=== PATIENT | female | born 1945 | race Caucasian/White ===

== ENCOUNTER → 2016-05-14 | Outpatient (CLI) | payer OTHER ==
[~2016-05-14] MED LIST: ASPCH81X PO; CALC8.5C PO; CHOL100010 PO; ECHI1CAP PO; GLUC500T35 PO; MULT-506 PO; OMEG10007 PO; PHEN32.44 PO; [UNRECOGNIZED DRUG - CODE] PO
[2016-05-14 17:34] LABS: THYROID STIMULATING HORMONE < 0.005 uIu/ml (0.300-4.500)
[2016-05-16 14:54] LABS: MICROSOMAL AB 340 IU/ML (<9)
== END | disposition home or self-care (01) ==
LOC: C.LABBC 13:12
PROVIDERS: ATTEND Internal Medicine Geriatric Medicine
DX: E05.90 Thyrotoxicosis, unspecified without thyrotoxic crisis or storm (principal)

== ENCOUNTER → 2016-06-12 | Outpatient (CLI) | payer OTHER | END | disposition home or self-care (01) | LOC: C.LABBC 13:09 | PROVIDERS: ATTEND Internal Medicine Geriatric Medicine | DX: E05.90 Thyrotoxicosis, unspecified without thyrotoxic crisis or storm (principal) ==

== ENCOUNTER → 2016-07-03 | Outpatient (CLI) | payer OTHER | END | disposition home or self-care (01) | LOC: C.MAMM 10:13 | PROVIDERS: ATTEND Internal Medicine Endocrinology, Diabetes & Metabolism | DX: E55.9 Vitamin D deficiency, unspecified (principal); M85.851 Other specified disorders of bone density and structure, right thigh; M85.852 Other specified disorders of bone density and structure, left thigh ==

== ENCOUNTER → 2016-07-07 | Outpatient (CLI) | payer OTHER ==
[2016-07-07 16:40] LABS: HEMATOCRIT 39.7 % (37-47)
[2016-07-08 06:44] LABS: ESTIMATED AVERAGE GLUCOSE 100 mg/dl; HA1C FLAG Normal (Normal)
[2016-07-10 15:31] LABS: TSI 702 % baseline (<140)
== END | disposition home or self-care (01) ==
LOC: C.LAB1850 15:04
PROVIDERS: ATTEND Internal Medicine Endocrinology, Diabetes & Metabolism
DX: E05.90 Thyrotoxicosis, unspecified without thyrotoxic crisis or storm (principal); R73.9 Hyperglycemia, unspecified

== ENCOUNTER → 2016-07-28 | Outpatient (CLI) | payer OTHER ==
[2016-07-28 16:38] LABS: THYROID STIMULATING HORMONE 5.86 uIu/ml (0.300-4.500)
== END | disposition home or self-care (01) ==
LOC: C.LAB1850 15:02
PROVIDERS: ATTEND Internal Medicine Endocrinology, Diabetes & Metabolism
DX: E05.90 Thyrotoxicosis, unspecified without thyrotoxic crisis or storm (principal)

== ENCOUNTER → 2016-08-18 | Outpatient (CLI) | payer OTHER ==
[2016-08-18 16:24] LABS: THYROID STIMULATING HORMONE 2.76 uIu/ml (0.300-4.500)
== END | disposition home or self-care (01) ==
LOC: C.LAB1850 14:27
PROVIDERS: ATTEND Internal Medicine Endocrinology, Diabetes & Metabolism
DX: E05.90 Thyrotoxicosis, unspecified without thyrotoxic crisis or storm (principal)

== ENCOUNTER → 2016-11-17 | Outpatient (CLI) | payer OTHER ==
[2016-11-17 12:11] LABS: THYROID STIMULATING HORMONE 3.81 uIu/ml (0.300-4.500)
== END | disposition home or self-care (01) ==
LOC: C.LAB1850 10:24
PROVIDERS: ATTEND Internal Medicine Endocrinology, Diabetes & Metabolism
DX: E05.90 Thyrotoxicosis, unspecified without thyrotoxic crisis or storm (principal)

== ENCOUNTER → 2017-01-05 | Outpatient (CLI) | payer OTHER ==
[2017-01-05 12:52] LABS: THYROID STIMULATING HORMONE 3.45 uIu/ml (0.300-4.500)
== END | disposition home or self-care (01) ==
LOC: C.LAB1850 10:19
PROVIDERS: ATTEND Internal Medicine Endocrinology, Diabetes & Metabolism
DX: E05.90 Thyrotoxicosis, unspecified without thyrotoxic crisis or storm (principal)

== ENCOUNTER → 2017-01-06 | Outpatient (CLI) | payer OTHER ==
--- NOTE | 2017-01-06 15:24 | DIAGNOSTIC IMAGING REPORT ---
LEFT FOOT 2 VIEWS CLINICAL HISTORY: M19.90 [id number] Osteopenia left [id number]. Left foot pain. Fall. COMPARISON STUDY: None. FINDINGS: No fracture or dislocation. Small posterior calcaneal spur. The bones are osteopenic. The Lisfranc joint is intact. Mild osteoarthritis at the first MTP joint and interphalangeal joint of the first toe. Soft tissue and bony bunion. IMPRESSION: No acute fracture or dislocation within the left foot. Chronic changes as described above. Electronically signed by: Julian Patterson M.D. 01/06/2017 3:22 PM Dictated Date/Time: 01/06/2017 3:19 PM
== END | disposition home or self-care (01) ==
LOC: C.RAD1850 14:52
PROVIDERS: ATTEND Internal Medicine Endocrinology, Diabetes & Metabolism
DX: M19.90 Unspecified osteoarthritis, unspecified site (principal); M85.80 Other specified disorders of bone density and structure, unspecified site

== ENCOUNTER → 2017-01-27 | Outpatient (CLI) | payer OTHER ==
--- NOTE | 2017-01-27 17:35 | DIAGNOSTIC IMAGING REPORT ---
LEFT VENOUS DOPP LOWER EXT UNILAT CLINICAL HISTORY: I80.9 Superficial phlebitis left LE.[id number] pain. Edema. TECHNIQUE: Venous Doppler COMPARISON STUDY: 04/21/2016 FINDINGS: Normal study IMPRESSION: Normal study The above report was generated using voice recognition software. It may contain grammatical, syntax or spelling errors. Electronically signed by: Michi Durant M.D. 01/27/2017 5:34 PM Dictated Date/Time: 01/27/2017 5:33 PM
== END | disposition home or self-care (01) ==
LOC: C.ULTR 17:08
PROVIDERS: ATTEND Physician Assistant Medical
DX: I80.3 Phlebitis and thrombophlebitis of lower extremities, unspecified (principal); M79.605 Pain in left leg; R60.0 Localized edema

== ENCOUNTER → 2017-03-09 | Outpatient (CLI) | payer OTHER | END | disposition home or self-care (01) | LOC: C.LAB1850 15:13 | PROVIDERS: ATTEND Internal Medicine Endocrinology, Diabetes & Metabolism | DX: E05.90 Thyrotoxicosis, unspecified without thyrotoxic crisis or storm (principal) ==

== ENCOUNTER → 2017-04-30 | Outpatient (CLI) | payer OTHER ==
--- NOTE | 2017-04-30 14:34 | MAMMOGRAPHY REPORT ---
BILATERAL DIGITAL SCREENING MAMMOGRAM WITH CAD: 04/30/2017 CLINICAL HISTORY: Routine screening. TECHNIQUE: Current study was also evaluated with a Computer Aided Detection (CAD) system. Bilateral CC and MLO views are obtained. COMPARISON: Comparison is made to exams dated: 04/29/2016 mammogram, 04/24/2015 mammogram, 03/14/2014 mammogram, 02/15/2013 mammogram, 02/10/2012 mammogram, and 01/21/2011 mammogram - [facility]. BREAST COMPOSITION: There are scattered areas of fibroglandular density in both breasts. FINDINGS: No suspicious masses, calcifications, or areas of architectural distortion are noted in ei ther breast. There has been no significant interval change compared to prior exams. IMPRESSION: ACR BI-RADS CATEGORY 1: NEGATIVE There is no mammographic evidence of malignancy. A 1 year screening mammogram is recommended. The pa tient will receive written notification of the results. Approximately 10% of breast cancers are not detected with mammography. A negative mammographic report should not delay biopsy if a clinically suggestive mass is present. Jazmin Garza M.D. ah/:04/30/2017 12:11:04 [employer]: Faiza SARMIENTO(R)(M), [facility] letter sent: Normal 1/2 BI-RADS Code: ACR BI-RADS Category 1: Negative
== END | disposition home or self-care (01) ==
LOC: C.MAMM 10:37
PROVIDERS: ATTEND Obstetrics & Gynecology
DX: Z12.31 Encounter for screening mammogram for malignant neoplasm of breast (principal)

== ENCOUNTER → 2017-05-08 | Outpatient (CLI) | payer OTHER ==
[~2017-05-08] MED LIST changes: +APIX1TAB3 PO; +CHOLTAB9 PO; +ESTR0.5T3 PO; +NORE5TAB5 PO
[2017-05-08 11:24] LABS: BLOOD UREA NITROGEN 17 mg/dl (7-18); CALCIUM 8.6 mg/dl (8.5-10.1); CARBON DIOXIDE 28 mmol/L (21-32); GLUCOSE 97 mg/dl (70-99); POTASSIUM 3.9 mmol/L (3.5-5.1); SODIUM 139 mmol/L (136-145)
[2017-05-08 11:36] LABS: CHOLESTEROL 210 mg/dl (0-200); LDL CHOLESTEROL CALCULATED 104 mg/dl
== END | disposition home or self-care (01) ==
LOC: C.LAB1850 09:38
PROVIDERS: ATTEND Internal Medicine Endocrinology, Diabetes & Metabolism
DX: E05.90 Thyrotoxicosis, unspecified without thyrotoxic crisis or storm (principal); E55.9 Vitamin D deficiency, unspecified

== ENCOUNTER → 2017-07-07 | Outpatient (CLI) | payer OTHER ==
[~2017-07-07] MED LIST changes: -APIX1TAB3 PO; -CHOLTAB9 PO; -ESTR0.5T3 PO; -NORE5TAB5 PO
[2017-07-07 12:25] LABS: ALBUMIN 3.7 gm/dl (3.4-5.0); ALT/SGPT 21 U/L (12-78); AST/SGOT 14 U/L (15-37); BLOOD UREA NITROGEN 15 mg/dl (7-18); CALCIUM 8.5 mg/dl (8.5-10.1); CARBON DIOXIDE 26 mmol/L (21-32); CREATININE 1.06 mg/dl (0.60-1.20); GLUCOSE 70 mg/dl (70-99); POTASSIUM 3.7 mmol/L (3.5-5.1); SODIUM 138 mmol/L (136-145)
[2017-07-07 12:36] LABS: ALKALINE PHOSPHATASE 71 U/L (45-117); TOTAL PROTEIN 7.4 gm/dl (6.4-8.2)
[2017-07-10 16:28] LABS: CA15-3 BREAST ANTIGEN 5819 11 U/mL (<32); TSI 165 % baseline (<140)
== END | disposition home or self-care (01) ==
LOC: C.LAB1850 10:22
PROVIDERS: ATTEND Internal Medicine Endocrinology, Diabetes & Metabolism
DX: M85.80 Other specified disorders of bone density and structure, unspecified site (principal); E05.90 Thyrotoxicosis, unspecified without thyrotoxic crisis or storm

== ENCOUNTER → 2017-07-08 | Outpatient (CLI) | payer OTHER | END | disposition home or self-care (01) | LOC: C.PAPS 17:57 | PROVIDERS: ATTEND Obstetrics & Gynecology | DX: Z01.419 Encounter for gynecological examination (general) (routine) without abnormal findings (principal); Z78.0 Asymptomatic menopausal state ==

== ENCOUNTER 2017-07-15 17:48 | Inpatient (IN) | payer OTHER ==
[~2017-07-15] VITALS: Ht 174 cm; Wt 72.4 kg
[2017-07-15] MEDS ORDERED: MoRPHine SULFATE 4 MG/ML 1 ML CARP\\VIAL IV STA (18:13)
[2017-07-15] MEDS ORDERED: SODIUM CHLORIDE 0.9% 500ML 500 ML IV STA (18:13)
[2017-07-15] MEDS ORDERED: ONDANSETRON INJ 2 MG/ML 2 ML VIAL IV STA (18:13)
[2017-07-15 18:33] LABS: BASO % 0.2 %; BASO ABS # 0.02 K/uL (0-0.2); EOS ABS # 0.17 K/uL (0-0.5); HEMATOCRIT 37.7 % (37-47); HEMOGLOBIN 12.9 g/dL (12.0-16.0); IG# 0.01 K/uL (0.00-0.02); LYMPH % 18.2 %; LYMPH ABS # 1.51 K/uL (1.2-3.4); MEAN CELL VOLUME 95.7 fL (80-100); MEAN CORPUSCULAR HEMOGLOBIN 32.7 pg (25-34); MEAN CORPUSCULAR HGB CONC 34.2 g/dl (32-36); MEAN PLATELET VOLUME 10.6 fL (7.4-10.4); MONO % 6.3 %; MONO ABS # 0.52 K/uL (0.11-0.59); NEUT % 73.2 %; NEUT ABS # 6.08 K/uL (1.4-6.5); PLATELET COUNT 150 K/uL (130-400); RED CELL DISTRIBUTION WIDTH CV 13.1 % (11.5-14.5); WHITE BLOOD COUNT 8.31 K/uL (4.8-10.8)
[2017-07-15] MEDS ORDERED: NORE5TAB5 PO (18:37)
[2017-07-15] MEDS ORDERED: ESTR0.5T3 PO (18:37)
[2017-07-15] MEDS ORDERED: CHOLTAB9 PO (18:37)
--- NOTE | 2017-07-15 18:38 | DIAGNOSTIC IMAGING REPORT ---
CHEST ONE VIEW PORTABLE CLINICAL HISTORY: 71 years-old Female presenting with Chest Pain, dyspnea. TECHNIQUE: Portable upright AP view of the chest was obtained. COMPARISON: None. FINDINGS: Cardiomediastinal silhouette normal. Lungs and pleural spaces clear. Degenerative changes of the thoracic spine. Upper abdomen normal. IMPRESSION: 1. No acute cardiopulmonary disease. Electronically signed by: Marlon Kim M.D. 07/15/2017 6:37 PM Dictated Date/Time: 07/15/2017 6:37 PM
[2017-07-15 18:51] LABS: BLOOD UREA NITROGEN 18 mg/dl (7-18); CALCIUM 8.6 mg/dl (8.5-10.1); CARBON DIOXIDE 28 mmol/L (21-32); CREATININE 1.01 mg/dl (0.60-1.20); GLUCOSE 111 mg/dl (70-99); POTASSIUM 3.6 mmol/L (3.5-5.1); SODIUM 138 mmol/L (136-145)
[2017-07-15] MEDS ORDERED: DiphenhydrAMINE HCL 50 MG/ML VIAL IV STA (19:15)
[2017-07-15] MEDS ORDERED: METHYLPREDNISOLONE 125 MG VIAL IV STA (19:15)
[2017-07-15] MEDS ORDERED: OPTIRAY 320 IV PRN (19:30)
--- NOTE | 2017-07-15 19:59 | DIAGNOSTIC IMAGING REPORT ---
CT ANGIOGRAM OF THE CHEST CLINICAL HISTORY: Atypical chest pain. COMPARISON STUDY: Chest x-ray dated 07/15/2017. TECHNIQUE: Following the IV administration of 62 cc of Optiray 320, CT angiogram of the chest was performed from the upper abdomen to the thoracic inlet utilizing the pulmonary embolus protocol. Images are reviewed in the axial, sagittal, and coronal planes. 3-D MIPS images are created and assessed. IV contrast was administered without complication. A dose lowering technique was utilized adhering to the principles of ALARA. The Examination is degraded by suboptimal opacification of the pulmonary arteries. CT DOSE: 255.60 mGy.cm FINDINGS: Thyroid: Imaged portions of the thyroid gland are normal in size and attenuation. Thoracic aorta: The thoracic aorta is normal in caliber and demonstrates standard 3-vessel arch anatomy. No dissection is seen. Pulmonary vasculature: The pulmonary trunk is normal in caliber. There are pulmonary embolus seen within the disc right lower lobe pulmonary artery extending into segmental and subsegmental branches. Pulmonary emboli are also seen within segmental and subsegmental branches of the right middle lobe there are segmental and subsegmental pulmonary emboli within branches of the left lower lobe pulmonary artery. Heart: The heart is mildly enlarged and without pericardial effusion. There are coronary artery calcifications. Lungs and pleural spaces: Evaluation of the lung parenchyma is modestly degraded by motion artifact. There is no airspace consolidation or pleural effusion identified. Dependent atelectasis is observed. The trachea and central airways are clear. Mediastinum: There is no mediastinal lymphadenopathy. Meera: Clear. Axillae: There is no axillary lymphadenopathy. Upper abdomen: Gallstone are suspected. A 2.1 cm left adrenal nodule meets CT criteria for a fat-containing adenoma. There is a punctate nonobstructing left renal calculus seen on image #18. Skeletal structures: The skeletal structures are osteopenic. Degenerative change and mild hyperkyphosis are noted in the thoracic spine. No lytic or blastic bony lesions are seen. IMPRESSION: 1. Bilateral pulmonary emboli as above. 2. There is no airspace consolidation or pleural effusion. 3. Cardiomegaly. 4. Suspect cholelithiasis. 5. There is a tiny nonobstructing left renal calculus. Electronically signed by: Xavier Nguyen M.D. 07/15/2017 7:58 PM Dictated Date/Time: 07/15/2017 7:52 PM
[2017-07-15 20:45] LABS: PTT PATIENT 23.2 SECONDS (21.0-31.0)
[2017-07-15] MEDS ORDERED: HEPARIN 25,000 UNIT/500ML D5W 500 ML IV PRN (20:45)
[2017-07-15] MEDS ORDERED: HEPARIN SOD 5000 UNIT/0.5 ML CARP IV ONE (20:45)
--- NOTE | 2017-07-15 21:43 | DIAGNOSTIC IMAGING REPORT ---
ULTRASOUND BILATERAL LOWER EXTREMITY VENOUS CLINICAL HISTORY: Pulmonary embolus. COMPARISON STUDY: Bilateral lower extremity venous ultrasound dated 04/11/2016. TECHNIQUE: Real-time, grayscale, and color Doppler sonography of the deep veins of the right and left lower extremity was performed from the inguinal crease to the calf. Compression and augmentation were utilized. FINDINGS: Right lower extremity: Nonocclusive deep venous thrombosis is identified within the right popliteal vein. The common femoral and superficial femoral veins are patent and normally compressible. The greater saphenous vein and the profunda femoris vein at the junction with the common femoral vein are clear. The visualized calf veins are patent. Left lower extremity: No deep venous thrombosis is identified in the left lower extremity. The common femoral, superficial femoral, and popliteal veins are patent and normally compressible. The greater saphenous vein and the profunda femoris vein at the junction with the common femoral vein are clear. The visualized calf veins are patent. IMPRESSION: 1. There is nonocclusive deep venous thrombosis identified within the right popliteal vein. 2. There is no sonographic evidence of deep venous thrombosis identified in the left lower extremity. Electronically signed by: Xavier Nguyen M.D. 07/15/2017 9:41 PM Dictated Date/Time: 07/15/2017 9:40 PM
[2017-07-15] MEDS ORDERED: NITROGLYCERIN 0.4 MG SL PER TAB CHARGE SL PRN (22:45)
[2017-07-15] MEDS ORDERED: POLYETHYLENE (MIRALAX) 17 GM PACK PO PRN (22:45)
[2017-07-15] MEDS ORDERED: ACETAMINOPHEN 325 MG TAB PO PRN (22:45)
[2017-07-15] MEDS ORDERED: ONDANSETRON INJ 2 MG/ML 2 ML VIAL IV PRN (22:45)
[2017-07-15] MEDS ORDERED: MoRPHine SULFATE 2 MG/ML CARP IV PRN ×2 (23:00)
[2017-07-15] MEDS ORDERED: PHENOBARBITAL 32.4 MG TAB PO STA (23:02)
--- NOTE | 2017-07-15 23:05 | History and Physical ---
History & Physical Date & Time of Service: Jul 15, 2017 at 22:52 Chief Complaint: Pain Under Right Breast, Trouble Taking Deep Breat Primary Care Physician: Gutierrez Jerome M.D. History of Present Illness Source: patient, hospital records Patient is a 71 year old female with a past medical history of osteopenia on estrogen replacement and seizures that presents with a 1 day history of chest pain. The patient states she was having right sided chest pain yesterday evening when laying down that was mild in nature and felt like she had strained a muscle but was able to sleep. Today the patient woke up with similar discomfort that continue to progress to a 7/10, sharp pain over the right side of the chest, worse with deep breaths and laying on the right side, and associated with shortness of breath. The patient appreciates having recently driven to and from [place] to visit a friend in the hospital. The patient also has a previous history of clots. This summer the patient states she had a superficial clot in her right leg treated with Aspirin and compresses, and a history of a clot in her left arm several years ago. The patients mother of a large pulmonary embolism. The patients father has a history of lupus. The patient has not been worked up for a clotting disorder in the past and has never been on manager terminal blood thinners. Past Medical/Surgical History PMH: Osteopenia Family History Mother with history of pulmonary emboli Social History Smoking Status: Never Smoker Smokeless Tobacco Use: No Alcohol Use: none Drug Use: none Occupational Status: retired Immunizations History of Influenza Vaccine: Unknown History of Tetanus Vaccine?: Unknown History of Pneumococcal: Unknown History of Hepatitis B Vaccine: Unknown Allergies Coded Allergies: Adhesives (Verified Allergy, Unknown, SENSITIVE IF WEARING LONG TIME, ) Uncoded Allergies: XRAY DYE ALEJANDRO INK (Allergy, Severe, HIVES, 07/15/17) Home Medications Scheduled Apixaban (Eliquis), 5 MG PO Q12 Aspirin (Aspirin Chewable), 81 MG PO Q2D Calcium W/ Vitamins D & K (Viactiv), 1 TAB PO BIDM Cholecalciferol (D3-1000), 1,000 UNITS PO QAM Echinacea (Echinacea), 1 CAP PO QAM Fish Oil ([place]kom-3), 1 CAP PO QAM Glucosamine-Chondroitin (Cosamin Ds), 2 TAB PO QDD Multivitamin (Multivitamin), 1 TAB PO QAM Phenobarbital (Phenobarbital), 1 TAB PO BID Review of Systems See HPI for pertinent positives and negatives. A total of ten systems were reviewed and were otherwise negative. Physical Exam Vital Signs Date Time Temp Pulse Resp B/P (MAP) Pulse Ox O2 Delivery O2 Flow Rate FiO2 07/15/17 22:32 72 20 132/78 94 Room Air 07/15/17 20:42 76 20 128/78 95 Room Air 07/15/17 19:11 88 20 143/69 96 Room Air 07/15/17 17:56 36.5 82 18 144/90 96 Room Air General Appearance: WD/WN, no apparent distress Head: normocephalic, atraumatic Eyes: normal inspection, sclerae normal Neck: supple, no carotid bruits Respiratory/Chest: chest non-tender, lungs clear, normal breath sounds Cardiovascular: regular rate, rhythm, no edema, no murmur Abdomen/GI: normal bowel sounds, non tender, soft Extremities/Musculoskelatal: no calf tenderness, no pedal edema, + pertinent finding (Mild erythema over the lateral aspect of the dorsum of the foot. Patient states she has baseline sensitivity to touch of her lower extremity and states that she has no significant TTP outside of her baseline.) Neurologic/Psych: alert, normal mood/affect, oriented x 3 Diagnostics Laboratory Results Results Past 24 Hours Test 07/15/17 18:20 Range/Units White Blood Count 8.31 4.8-10.8 K/uL Red Blood Count 3.94 4.2-5.4 M/uL Hemoglobin 12.9 12.0-16.0 g/dL Hematocrit 37.7 37-47 % Mean Corpuscular Volume 95.7 80-100 fL Mean Corpuscular Hemoglobin 32.7 25-34 pg Mean Corpuscular Hemoglobin Concent 34.2 32-36 g/dl Platelet Count 150 130-400 K/uL Mean Platelet Volume 10.6 7.4-10.4 fL Neutrophils (%) (Auto) 73.2 % Lymphocytes (%) (Auto) 18.2 % Monocytes (%) (Auto) 6.3 % Eosinophils (%) (Auto) 2.0 % Basophils (%) (Auto) 0.2 % Neutrophils # (Auto) 6.08 1.4-6.5 K/uL Lymphocytes # (Auto) 1.51 1.2-3.4 K/uL Monocytes # (Auto) 0.52 0.11-0.59 K/uL Eosinophils # (Auto) 0.17 0-0.5 K/uL Basophils # (Auto) 0.02 0-0.2 K/uL RDW Standard Deviation 46.0 36.4-46.3 fL RDW Coefficient of Variation 13.1 11.5-14.5 % Immature Granulocyte % (Auto) 0.1 % Immature Granulocyte # (Auto) 0.01 0.00-0.02 K/uL Prothrombin Time 10.0 9.0-12.0 SECONDS Prothromb Time International Ratio 1.0 0.9-1.1 Activated Partial Thromboplast Time 23.2 21.0-31.0 SECONDS Partial Thromboplastin Ratio 0.9 D-Dimer 7000 0-500 ug/L FEU Sodium Level 138 136-145 mmol/L Potassium Level 3.6 3.5-5.1 mmol/L Chloride Level 105 98-107 mmol/L Carbon Dioxide Level 28 21-32 mmol/L Anion Gap 5.0 3-11 mmol/L Blood Urea Nitrogen 18 7-18 mg/dl Creatinine 1.01 0.60-1.20 mg/dl Est Creatinine Clear Calc Drug Dose 50.8 ml/min Estimated GFR () 64.4 Estimated GFR (Non- 55.6 BUN/Creatinine Ratio 18.1 10-20 Random Glucose 111 70-99 mg/dl Calcium Level 8.6 8.5-10.1 mg/dl Total Creatine Kinase 67 26-192 U/L Creatine Kinase MB 1.0 0.5-3.6 ng/ml Creatine Kinase MB Ratio 1.5 0-3.0 Troponin I < 0.015 0-0.045 ng/ml Impression Assessment and Plan Patient is a 71 year old female with a past medical history of osteopenia on estrogen replacement and seizures that presents with a 1 day history of chest pain Pulmonary Embolism - CTA: There are pulmonary embolus seen within the disc right lower lobe pulmonary artery extending into segmental and subsegmental branches. Pulmonary emboli are also seen within segmental and subsegmental branches of the right middle lobe there are segmental and subsegmental pulmonary emboli within branches of the left lower lobe pulmonary artery. - Venous Doppler: 1. There is nonocclusive deep venous thrombosis identified within the right popliteal vein. - Heparin Standard IV - Morphine 2mg q4h for Mild to Mod pain, 2mg q4h for Severe Pain on top - Testing: Lupus Anticoagulant, Protein C/S, Antiphospholipid - Supplemental oxygen as needed --> Currently resting at 94% on RA - Discontinue home Norethindrone and Estradiol - Continue home Aspirin - PRN Zofran and Tylenol - Admit Telemetry Seizure Disorder - Continue home Phenobarbital DVT - Heparin Code Status - Full Resuscitation Attending addendum: I have physically seen this patient, have supervised the medical residents activities, and agree with the H&P unless as otherwise noted. Assessment and Plan: Bilateral pulmonary emboli/ right lower extremity popliteal vein DVT-- Follow on telemetry for close oxygen monitoring. Heparin IV standard dosing per protocol. Hypercoagulable workup due to family history. Recommend discontinuance of HRT. Continue aspirin. Form of long-term anticoagulation will be confirmed with patient tomorrow. Advanced Directives Existing Advance Directive: No Existing Living Will: No Existing Power of Ocular Care Aide: No Resuscitation Status VTE Prophylaxis Will order VTE Prophylaxis: Yes Resident Tracking Resident Involvement: Resident Care Provided Care Provided: Adult Hospital Medicine
[2017-07-15 23:30] VITALS: BP 130/72; PULSE 67; TEMP 36.5; O2SAT 98; Ht 174 cm; Wt 72.4 kg
[2017-07-15] MEDS ORDERED: PHENOBARBITAL 32.4 MG TAB PO SCH (23:51)
--- NOTE | 2017-07-16 00:05 | EMERGENCY ROOM VISIT NOTE ---
History Report prepared by Deborah: Tavo Silverman Under the Supervision of: Dr. Carlos Singh D.O. First contact with patient: 17:58 Chief Complaint: CHEST PAIN Stated Complaint: PAIN UNDER RIGHT BREAST, TROUBLE TAKING DEEP BREAT Nursing Triage Summary: Pt reports pain under right breast, noticed while lying prone in bed. Pain with deep breath. Denies lightheadedness. History of Present Illness The patient is a 71 year old female who presents to the Emergency Room with complaints of worsening pain in right chest that began last night while laying in bed. The patient states that she first noticed the pain last night as she was trying to sleep on her stomach. The pain has worsened/progressed through the day today. She rates her current pain as a 7/10 in severity, and notes that it is worsened significantly with deep inspiration and movement. She describes the sensation as "sharp and stabbing." Moving/bending to the right worsens the pain. The patient states that if she is staying completely still there is no pain. She does have a history of blood clots and has had a DVT in her left lower extremity, as well as her left upper extremity. The LLE DVT occurred last summer. Her mother did have pulmonary emboli. She is currently on a Baby Aspirin daily. She denies any further headache, change in vision, fevers, nausea , vomiting, diarrhea, pain with urination, and melena. Source of History: patient Onset: Last night Position: chest (right) Quality: sharp, stabbing Timing: worsening Modifying Factors (Worsening): breathing, movement Associated Symptoms: No cough, No nausea Review of Systems See HPI for pertinent positives & negatives. A total of 10 systems reviewed and were otherwise negative. Past Medical & Surgical Medical Problems: (1) Bilateral pulmonary embolism Hx of Multiple DVTs Family History Omitted Secondary to Age Social History Smoking Status: Never Smoker Drug Use: none Occupation Status: retired Current/Historical Medications Scheduled Aspirin (Aspirin Chewable), 81 MG PO Q2D Calcium W/ Vitamins D & K (Viactiv), 1 TAB PO BIDM Cholecalciferol (D3-1000), 1,000 UNITS PO QAM Echinacea (Echinacea), 1 CAP PO QAM Estradiol (Estradiol), 0.5 MG PO Q2D Fish Oil (Bethany-3), 1 CAP PO QAM Glucosamine-Chondroitin (Cosamin Ds), 2 TAB PO QDD Multivitamin (Multivitamin), 1 TAB PO QAM Norethindrone (Aygestin), 2.5 MG PO Q2D Phenobarbital (Phenobarbital), 1 TAB PO BID Allergies Coded Allergies: Adhesives (Verified Allergy, Unknown, SENSITIVE IF WEARING LONG TIME, ) Uncoded Allergies: XRAY DYE ALEJANDRO INK (Allergy, Severe, HIVES, 07/15/17) Physical Exam Vital Signs Date Time Temp Pulse Resp B/P (MAP) Pulse Ox O2 Delivery O2 Flow Rate FiO2 07/15/17 22:32 72 20 132/78 94 Room Air 07/15/17 20:42 76 20 128/78 95 Room Air 07/15/17 19:11 88 20 143/69 96 Room Air 07/15/17 17:56 36.5 82 18 144/90 96 Room Air Physical Exam GENERAL: Sitting up in bed, alert, well nourished, holding under right breast, in mild distress. EYE EXAM: normal conjunctiva. OROPHARYNX: no exudate, no erythema, lips, buccal mucosa, and tongue normal and mucous membranes are moist NECK: supple, no nuchal rigidity, no adenopathy, non-tender CHEST: There is acute reproducible tenderness under the right breast. Skin is intact, There are no lesions. LUNGS: Clear to auscultation. Normal chest wall mechanics HEART: no murmurs, S1 normal and S2 normal ABDOMEN: abdomen soft, non-tender, normo-active bowel sounds, no masses, no rebound or guarding. BACK: Back is symmetrical on inspection and there is no deformity, no midline tenderness, no CVA tenderness. SKIN: no rashes and no bruising UPPER EXTREMITIES: upper extremities are grossly normal. LOWER EXTREMITIES: No pitting edema. NEURO EXAM: Normal sensorium, cranial nerves II-XII grossly intact, normal speech, no gross weakness of arms, no gross weakness of legs. Medical Decision & Procedures ER Provider Diagnostic Interpretation: Radiology results as stated below per my review and the radiologist's interpretation: CT ANGIOGRAM OF THE CHEST CLINICAL HISTORY: Atypical chest pain. COMPARISON STUDY: Chest x-ray dated 07/15/2017. TECHNIQUE: Following the IV administration of 62 cc of Optiray 320, CT angiogram of the chest was performed from the upper abdomen to the thoracic inlet utilizing the pulmonary embolus protocol. Images are reviewed in the axial, sagittal, and coronal planes. 3-D MIPS images are created and assessed. IV contrast was administered without complication. A dose lowering technique was utilized adhering to the principles of ALARA. The Examination is degraded by suboptimal opacification of the pulmonary arteries. CT DOSE: 255.60 mGy.cm FINDINGS: Thyroid: Imaged portions of the thyroid gland are normal in size and attenuation. Thoracic aorta: The thoracic aorta is normal in caliber and demonstrates standard 3-vessel arch anatomy. No dissection is seen. Pulmonary vasculature: The pulmonary trunk is normal in caliber. There are pulmonary embolus seen within the disc right lower lobe pulmonary artery extending into segmental and subsegmental branches. Pulmonary emboli are also seen within segmental and subsegmental branches of the right middle lobe there are segmental and subsegmental pulmonary emboli within branches of the left lower lobe pulmonary artery. Heart: The heart is mildly enlarged and without pericardial effusion. There are coronary artery calcifications. Lungs and pleural spaces: Evaluation of the lung parenchyma is modestly degraded by motion artifact. There is no airspace consolidation or pleural effusion identified. Dependent atelectasis is observed. The trachea and central airways are clear. Mediastinum: There is no mediastinal lymphadenopathy. Meera: Clear. Axillae: There is no axillary lymphadenopathy. Upper abdomen: Gallstone are suspected. A 2.1 cm left adrenal nodule meets CT criteria for a fat-containing adenoma. There is a punctate nonobstructing left renal calculus seen on image #18. Skeletal structures: The skeletal structures are osteopenic. Degenerative change and mild hyperkyphosis are noted in the thoracic spine. No lytic or blastic bony lesions are seen. IMPRESSION: 1. Bilateral pulmonary emboli as above. 2. There is no airspace consolidation or pleural effusion. 3. Cardiomegaly. 4. Suspect cholelithiasis. 5. There is a tiny nonobstructing left renal calculus. Electronically signed by: Xavier Nguyen M.D. 07/15/2017 7:58 PM Dictated Date/Time: 07/15/2017 7:52 PM CHEST ONE VIEW PORTABLE CLINICAL HISTORY: 71 years-old Female presenting with Chest Pain, dyspnea. TECHNIQUE: Portable upright AP view of the chest was obtained. COMPARISON: None. FINDINGS: Cardiomediastinal silhouette normal. Lungs and pleural spaces clear. Degenerative changes of the thoracic spine. Upper abdomen normal. IMPRESSION: 1. No acute cardiopulmonary disease. Electronically signed by: Marlon Kim M.D. 07/15/2017 6:37 PM Dictated Date/Time: 07/15/2017 6:37 PM Laboratory Results 07/15/17 18:20 Red Blood Count 3.94, Mean Corpuscular Volume 95.7, Mean Corpuscular Hemoglobin 32.7, Mean Corpuscular Hemoglobin Concent 34.2, Mean Platelet Volume 10.6, Neutrophils (%) (Auto) 73.2, Lymphocytes (%) (Auto) 18.2, Monocytes (%) (Auto) 6.3, Eosinophils (%) (Auto) 2.0, Basophils (%) (Auto) 0.2, Neutrophils # (Auto) 6.08, Lymphocytes # (Auto) 1.51, Monocytes # (Auto) 0.52, Eosinophils # (Auto) 0.17, Basophils # (Auto) 0.02 07/15/17 18:20 Test 07/15/17 18:20 White Blood Count 8.31 K/uL (4.8-10.8) Red Blood Count 3.94 M/uL (4.2-5.4) Hemoglobin 12.9 g/dL (12.0-16.0) Hematocrit 37.7 % (37-47) Mean Corpuscular Volume 95.7 fL (80-100) Mean Corpuscular Hemoglobin 32.7 pg (25-34) Mean Corpuscular Hemoglobin Concent 34.2 g/dl (32-36) Platelet Count 150 K/uL (130-400) Mean Platelet Volume 10.6 fL (7.4-10.4) Neutrophils (%) (Auto) 73.2 % Lymphocytes (%) (Auto) 18.2 % Monocytes (%) (Auto) 6.3 % Eosinophils (%) (Auto) 2.0 % Basophils (%) (Auto) 0.2 % Neutrophils # (Auto) 6.08 K/uL (1.4-6.5) Lymphocytes # (Auto) 1.51 K/uL (1.2-3.4) Monocytes # (Auto) 0.52 K/uL (0.11-0.59) Eosinophils # (Auto) 0.17 K/uL (0-0.5) Basophils # (Auto) 0.02 K/uL (0-0.2) RDW Standard Deviation 46.0 fL (36.4-46.3) RDW Coefficient of Variation 13.1 % (11.5-14.5) Immature Granulocyte % (Auto) 0.1 % Immature Granulocyte # (Auto) 0.01 K/uL (0.00-0.02) Prothrombin Time 10.0 SECONDS (9.0-12.0) Prothromb Time International Ratio 1.0 (0.9-1.1) Activated Partial Thromboplast Time 23.2 SECONDS (21.0-31.0) Partial Thromboplastin Ratio 0.9 D-Dimer 7000 ug/L FEU (0-500) Anion Gap 5.0 mmol/L (3-11) Est Creatinine Clear Calc Drug Dose 50.8 ml/min Estimated GFR () 64.4 Estimated GFR (Non- 55.6 BUN/Creatinine Ratio 18.1 (10-20) Calcium Level 8.6 mg/dl (8.5-10.1) Total Creatine Kinase 67 U/L (26-192) Creatine Kinase MB 1.0 ng/ml (0.5-3.6) Creatine Kinase MB Ratio 1.5 (0-3.0) Troponin I < 0.015 ng/ml (0-0.045) Laboratory results per my review. Medications Administered Medications (Trade) Dose Ordered Sig/Mikie Route Start Time Stop Time Status Last Admin Dose Admin Morphine Sulfate (MoRPHine SULFATE INJ) 4 mg NOW STAT IV 07/15/17 18:13 07/15/17 18:15 DC 07/15/17 19:09 4 MG Ondansetron HCl (Zofran Inj) 4 mg NOW STAT IV 07/15/17 18:13 07/15/17 18:15 DC 07/15/17 19:08 4 MG Sodium Chloride 500 ml @ 999 mls/hr Q31M STAT IV 07/15/17 18:13 07/15/17 18:43 DC 07/15/17 18:40 999 MLS/HR Diphenhydramine HCl (Benadryl Inj) 25 mg NOW STAT IV 07/15/17 19:15 07/15/17 19:16 DC 07/15/17 19:25 25 MG Methylprednisolone Sodium Succinate (Solu-Medrol IV) 125 mg NOW STAT IV 07/15/17 19:15 07/15/17 19:16 DC 07/15/17 19:25 125 MG Heparin Sodium/ Dextrose 500 ml @ 24 mls/hr [id number] PRN IV 07/15/17 20:45 08/14/17 20:44 07/15/17 21:03 24 MLS/HR Heparin Sodium (Porcine) (Heparin Sq 5000 Unit/0.5ml) 5,000 unit NOW ONCE IV 07/15/17 20:45 07/15/17 20:46 DC 07/15/17 21:02 5,000 UNIT ECG Per My Interpretation Indication: chest pain Rate (beats per minute): 90 Rhythm: normal sinus Findings: PAC, other (Normal axis, no ALVARO/STD) ED Course ED COURSE: Vital signs were reviewed and showed hypertensive vitals. The patients medical record was reviewed The above diagnostic studies were performed and reviewed. ED treatments and interventions as stated above. 1758: The patient was evaluated in room A12. A complete history and physical examination was performed. 1812: Ordered Sodium Chloride 500 mL @ 999 mL/hr IV, Zofran 4 mg IV, Morphine Sulfate 4 mg IV . 1914: Ordered Methylprednisolone 125 mg IV, Benadryl 25 mg IV. 1928: I checked on the patient at this time. She is agreeable to getting a CT. It was over 30 years ago that she had a reaction to "x-ray dye." 2012: I checked on the patient at this time. She declines bleeding risk factors. 2044: Ordered Heparin Sodium 5000 units IV. 2045: I discussed the case with Dr. Tinsley [facility] Hospitalist. He would like me to order Doppler Studies on the patient. He will evaluate for further treatment. []: Upon reevaluation, the patient is [].I discussed my findings with the [ patient] and [] understands and agrees with the treatment plan. Based on the patients age, coexisting illnesses, exam and lab findings the decision to treat as an [inpatient][outpatient] was made. The patient remained stable while under my care. [The patient appeared well at the time of discharge.] [The patient will be evaluated for further management.] Medical Decision Differential diagnoses includes but is not limited to acute coronary syndrome, myocardial infarction, pericarditis, pulmonary embolus, aortic dissection, pneumonia, pneumothorax, musculoskeletal, shingles, esophageal. Patient is a 71-year-old female who presents the ER for right-sided chest pain which is pleuritic in nature. Does have a recent history of traveling. Labs were obtained and CBC and BMP were unremarkable. D-dimer elevated at 7000. CT PE was performed and shows multiple bilateral PEs. At this point I had a long conversation with her in regards to bleeding risk factors and she declined them all. Explained the risk and benefits of heparin. She was placed on a heparin drip and bolus. She was monitored closely. She was admitted to internal medicine for bilateral PEs. She was not tachycardic, hypoxic and there were no obvious EKG changes. Consults Time Called: 2045 Consulting Physician: Dr. Alvina LLOYD Hospitalist Returned Call: 2045 I discussed the case with Dr. Alvina [facility]. He would like me to order Doppler Studies on the patient. He will evaluate for further treatment. Impression Primary Impression: Bilateral pulmonary embolism Critical Care I have personally spent 35 minutes of critical care time in the direct management of this patient. This includes bedside care, interpretation of diagnostic studies, and testing, discussion with consultants, patient, and family members, and other required patient management activities. This 35 minutes is in excess of all separately billable procedures. Scribe Attestation The scribe's documentation has been prepared under my direction and personally reviewed by me in its entirety. I confirm that the note above accurately reflects all work, treatment, procedures, and medical decision making performed by me. Departure Information Dispostion Being Evaluated By Hospitalist Referrals Gutierrez Jerome M.D. (PCP) Patient Instructions My [facility]
[2017-07-16 03:18] LABS: PTT PATIENT 63.5 SECONDS (21.0-31.0)
[2017-07-16 03:50] VITALS: BP 102/63; PULSE 60; TEMP 36.6; O2SAT 94
[2017-07-16 07:23] VITALS: BP 102/65; PULSE 54; TEMP 36.6; O2SAT 97
--- NOTE | 2017-07-16 08:06 | Family Medicine Progress Note ---
Progress Note Date of Service Jul 16, 2017. Subjective Pt evaluation today including: conversation w/ patient Found patient resting in bed. Says her chest discomfort is much improved since admit, down to a 2/10 (from prior 11/17). Denies present SOB. Does say that behind her right knee has been sore recently but she's still been able to walk without difficulty. Also notes some redness on the top of her right foot, but says it may be related to an object resting on it recently. Says the area is a little sore to touch but no pain on moving her ankle or toes. No other acute patient concerns. Constitutional: No fever, No chills Respiratory: + shortness of breath (resolved), No cough Cardiovascular: + chest pain, No edema Abdomen: No pain, No nausea, No vomiting, No diarrhea Medications Current Inpatient Medications Medications (Trade) Dose Ordered Sig/Mikie Route Start Time Stop Time Status Last Admin Dose Admin Ioversol (Optiray 320) 100 ml UD PRN IV 07/15/17 19:30 07/19/17 19:29 Heparin Sodium/ Dextrose 500 ml @ 24 mls/hr [id number] PRN IV 07/15/17 20:45 08/14/17 20:44 07/15/17 21:03 24 MLS/HR Acetaminophen (Tylenol Tab) 650 mg Q4H PRN PO 07/15/17 22:45 08/14/17 22:44 Ondansetron HCl (Zofran Inj) 4 mg Q6H PRN IV 07/15/17 22:45 08/14/17 22:44 Nitroglycerin (Nitrostat Tab) 0.4 mg UD PRN SL 07/15/17 22:45 08/14/17 22:44 Polyethylene (Miralax Powder Packet) 17 gm DAILY PRN PO 07/15/17 22:45 08/14/17 22:44 Aspirin (Aspirin Chew) 81 mg Q2D PO 07/16/17 09:00 08/15/17 08:59 Multivitamins (Multivitamin Tab) 1 tab QAM PO 07/16/17 09:00 08/15/17 08:59 Phenobarbital (Phenobarbital Tab) 32.4 mg BID PO 07/16/17 09:00 08/15/17 08:59 Morphine Sulfate (MoRPHine SULFATE INJ) 2 mg Q4H PRN IV 07/15/17 23:00 07/29/17 22:59 07/16/17 00:31 2 MG Objective Vital Signs Date Time Temp Pulse Resp B/P (MAP) Pulse Ox O2 Delivery O2 Flow Rate FiO2 07/16/17 07:23 36.6 54 16 102/65 (77) 97 Room Air 07/16/17 04:00 Room Air 07/16/17 03:50 36.6 60 18 102/63 (76) 94 Room Air 07/15/17 23:59 Room Air 07/15/17 23:30 36.5 67 18 130/72 98 Room Air 07/15/17 22:32 72 20 132/78 94 Room Air 07/15/17 20:42 76 20 128/78 95 Room Air 07/15/17 19:11 88 20 143/69 96 Room Air 07/15/17 17:56 36.5 82 18 144/90 96 Room Air Physical Exam Notes: General Appearance: Awake, alert & oriented, comfortable in general, NAD. CV: +S1S2 RRR, no murmur. No peripheral edema. Has bilateral LE varicose veins. Pulm: Clear to auscultation throughout. Abdomen: +BS, soft, non-tender, non-distended. Extremities: No pedal edema or calf tenderness. There is a patch of erythema over the right dorsal foot overlying the 4th-5th metatarsals that is mildly ttp. No warmth or related edema. No overt breaks in the skin. Able to move ankle and toes without difficulty. Neuro: No gross neuro deficits. Lines: Laboratory Results 07/15/17 18:20 Red Blood Count 3.94, Mean Corpuscular Volume 95.7, Mean Corpuscular Hemoglobin 32.7, Mean Corpuscular Hemoglobin Concent 34.2, Mean Platelet Volume 10.6, Neutrophils (%) (Auto) 73.2, Lymphocytes (%) (Auto) 18.2, Monocytes (%) (Auto) 6.3, Eosinophils (%) (Auto) 2.0, Basophils (%) (Auto) 0.2, Neutrophils # (Auto) 6.08, Lymphocytes # (Auto) 1.51, Monocytes # (Auto) 0.52, Eosinophils # (Auto) 0.17, Basophils # (Auto) 0.02 07/15/17 18:20 Test 07/15/17 18:20 07/16/17 02:50 07/16/17 05:38 White Blood Count 8.31 K/uL (4.8-10.8) Red Blood Count 3.94 M/uL (4.2-5.4) Hemoglobin 12.9 g/dL (12.0-16.0) Hematocrit 37.7 % (37-47) Mean Corpuscular Volume 95.7 fL (80-100) Mean Corpuscular Hemoglobin 32.7 pg (25-34) Mean Corpuscular Hemoglobin Concent 34.2 g/dl (32-36) Platelet Count 150 K/uL (130-400) Mean Platelet Volume 10.6 fL (7.4-10.4) Neutrophils (%) (Auto) 73.2 % Lymphocytes (%) (Auto) 18.2 % Monocytes (%) (Auto) 6.3 % Eosinophils (%) (Auto) 2.0 % Basophils (%) (Auto) 0.2 % Neutrophils # (Auto) 6.08 K/uL (1.4-6.5) Lymphocytes # (Auto) 1.51 K/uL (1.2-3.4) Monocytes # (Auto) 0.52 K/uL (0.11-0.59) Eosinophils # (Auto) 0.17 K/uL (0-0.5) Basophils # (Auto) 0.02 K/uL (0-0.2) RDW Standard Deviation 46.0 fL (36.4-46.3) RDW Coefficient of Variation 13.1 % (11.5-14.5) Immature Granulocyte % (Auto) 0.1 % Immature Granulocyte # (Auto) 0.01 K/uL (0.00-0.02) Prothrombin Time 10.0 SECONDS (9.0-12.0) Prothromb Time International Ratio 1.0 (0.9-1.1) D-Dimer 7000 ug/L FEU (0-500) Anion Gap 5.0 mmol/L (3-11) Est Creatinine Clear Calc Drug Dose 50.8 ml/min Estimated GFR () 64.4 Estimated GFR (Non- 55.6 BUN/Creatinine Ratio 18.1 (10-20) Calcium Level 8.6 mg/dl (8.5-10.1) Total Creatine Kinase 67 U/L (26-192) Creatine Kinase MB 1.0 ng/ml (0.5-3.6) Creatine Kinase MB Ratio 1.5 (0-3.0) Troponin I < 0.015 ng/ml (0-0.045) Activated Partial Thromboplast Time 63.5 SECONDS (21.0-31.0) Partial Thromboplastin Ratio 2.4 Assessment and Plan DRAFT 71 yo female admitted on [id number] for chest pain and SOB. PMH: Osteopenia (related to phenobarbital for seizures) on estrogen replacement , seizure disorder. Bilateral pulmonary embolisms: Prior history of clots in right leg and left arm. Here CTA notes bilateral PE. BLE lower extremity u/s notes non- obstructing right popliteal DVT. Mother of PE. From cardiac standpoint, EKG have been non-ischemic thus far and TnI was negative. Symptomatically improved since admit. On heparin infusion to start here. On home ASA 81. - Coagulation / PE lab workup in progress. - Holding home estradiol and norethindrone. Seizure disorder: Hx of same, no reports of recent seizures. On home phenobarbital 32.4 mg BID. Code status: Full code. Diet: Regular. DVT prophy: Heparin. PT/OT: Deferred. Disbo: Admit to telemetry. Resident Tracking Resident Involvement: Resident Care Provided Care Provided: Adult Hospital Medicine (inpatient)
[2017-07-16] MEDS ORDERED: PHENOBARBITAL 32.4 MG TAB PO SCH (09:00)
[2017-07-16] MEDS ORDERED: MULTIVITAMIN TAB PO SCH (09:00)
[2017-07-16] MEDS ORDERED: ASPIRIN 81 MG CHEW PO SCH (09:00)
[2017-07-16 11:51] VITALS: BP 97/61; PULSE 60; TEMP 36.8; O2SAT 96
[2017-07-16] MEDS ORDERED: APIX1TAB3 PO (13:49)
[2017-07-16] MEDS ORDERED: APIXABAN 2.5 MG TAB PO ONE (13:50)
--- NOTE | 2017-07-16 13:52 | Discharge Instructions ---
Discharge Instructions Date of Service Jul 16, 2017. Admission Reason for Admission: Bilateral Pulmonary Embolism Discharge Discharge Diagnosis / Problem: Bilateral pulmonary embolism Discharge Goals Goal(s): Improve disease control, Learn about illness Activity Recommendations Activity Limitations: resume your previous activity . Instructions / Follow-Up Instructions / Follow-Up You were hospitalized for initial evaluation and treatment of something called a pulmonary embolus, i.e. blood clots that travelled and are now in your lungs. This can cause symptoms of chest pain and shortness of breath. The goal going forward is to (1) try to prevent more of these clots from forming, (2) to watch to see that your current symptoms do not get worse, and (3) try to figure out what the cause of the clots was in the first place. (1) You are getting a prescription for a blood thinner called Eliquis. Normally you take one tablet (5 mg) every 12 hours. For the first week, though , you should take two tablets (10 mg) every 12 hours. The exact length of time you need to take this medication is presently unclear, but very likely it will be for at least three months. Please talk with your primary care provider about that as soon as possible. (2) If your chest pain returns, or you develop any shortness of breath with normal activities or at rest, you need to return to the emergency department for further evaluation. Similarly, the Eliquis medication can increase your risk of bleeding, so if you have any bleeding that doesn't seem to stop please go to the emergency department. (3) Right now the cause of the clots is unclear, though you may be predisposed to blood clots from your prior history of the same and your family history. We performed some initial blood work to look for causes, but this will not be available until about a week from July 15. Please contact your primary care provider to discuss the results of these tests. They will help determine if you have something called either a "provoked" or "unprovoked" clot which will play a role in how long you are on anticoagulation. Finally, medications such as norethindrone and estradiol can increase your risk of blood clots, so we recommend you stop taking them immediately and talk with Dr. Park about potential alternatives (if any). Current Hospital Diet Patient's current hospital diet: Regular Diet Discharge Diet Recommended Diet: Regular Diet Pending Studies Studies pending at discharge: yes List of pending studies: Multiple blood tests to evaluate for causes of blood clots. Laboratory Results Lipid Panel Test 05/08/17 09:45 Range/Units Triglycerides Level 76 0-150 mg/dl Cholesterol Level 210 H 0-200 mg/dl HDL Cholesterol 91 mg/dl Cholesterol/HDL Ratio 2.3 LDL Cholesterol, Calculated 104 mg/dl Medical Emergencies . Who to Call and When: Medical Emergencies: If at any time you feel your situation is an emergency, please call 911 immediately. . Non-Emergent Contact Non-Emergency issues call your: Primary Care Provider, Acupressurist .
--- NOTE | 2017-07-16 14:19 | Discharge Summary ---
Discharge Summary Date of Service Jul 16, 2017. Discharge Summary Admission Date: Jul 15, 2017 at 22:50 Discharge Date: Jul 16, 2017 Discharge Disposition: Home Principal Diagnosis: Bilateral pulmonary embolisms Procedures: 15Jul2017 - CT ANGIOGRAM OF THE CHEST IMPRESSION: 1. Bilateral pulmonary emboli as above. Pulmonary vasculature: The pulmonary trunk is normal in caliber. There are pulmonary embolus seen within the disc right lower lobe pulmonary artery extending into segmental and subsegmental branches. Pulmonary emboli are also seen within segmental and subsegmental branches of the right middle lobe there are segmental and subsegmental pulmonary emboli within branches of the left lower lobe pulmonary artery. 2. There is no airspace consolidation or pleural effusion. 3. Cardiomegaly. 4. Suspect cholelithiasis. 5. There is a tiny nonobstructing left renal calculus. 15Jul2017 - ULTRASOUND BILATERAL LOWER EXTREMITY VENOUS IMPRESSION: 1. There is nonocclusive deep venous thrombosis identified within the right popliteal vein. 2. There is no sonographic evidence of deep venous thrombosis identified in the left lower extremity. Consultations: None Medication Reconciliation New Medications: Apixaban (Eliquis) 5 Mg Tab 5 MG PO Q12 for 30 Days, #60 TAB 1 Refill For first 7 days, take 10 mg (two tablets) every 12 hours. After that, just one tablet every 12 hours. Continued Medications: Aspirin (Aspirin Chewable) 81 Mg Chew 81 MG PO Q2D Calcium W/ Vitamins D & K (Viactiv) 1 Chw Chw 1 TAB PO BIDM Cholecalciferol (D3-1000) 1,000 Unit Tab 1000 UNITS PO QAM Echinacea (Echinacea) 500 Mg Cap 1 CAP PO QAM Fish Oil (Jackson-3) 1 Ea Cap 1 CAP PO QAM, CAP Glucosamine-Chondroitin (Cosamin Ds) 1 Tab Tab 2 TAB PO QDD Multivitamin (Multivitamin) Tab 1 TAB PO QAM, TAB Phenobarbital (Phenobarbital) 32.4 Mg Tab 1 TAB PO BID Discontinued Medications: Estradiol (Estradiol) 0.5 Mg Tab 0.5 MG PO Q2D for 30 Days, #90 TAB 3 Refills Norethindrone (Aygestin) 5 Mg Tab 2.5 MG PO Q2D, TAB Discharge Exam General Appearance: Awake, alert & oriented, comfortable in general, NAD. CV: +S1S2 RRR, no murmur. No peripheral edema. Has bilateral LE varicose veins. Pulm: Clear to auscultation throughout. Abdomen: +BS, soft, non-tender, non-distended. Extremities: No pedal edema or calf tenderness. There is a patch of erythema over the right dorsal foot overlying the 4th-5th metatarsals that is mildly ttp. No warmth or related edema. No overt breaks in the skin. Able to move ankle and toes without difficulty. Neuro: No gross neuro deficits. Review of Systems: Constitutional: No fever, No chills Respiratory: No cough, No shortness of breath Cardiovascular: + chest pain (resolving), No edema Abdomen: No nausea, No vomiting, No diarrhea Hospital Course HPI at time of admit on Jul 15, 2017 at 22:52 71 year old female with a past medical history of osteopenia on estrogen replacement and seizures that presents with a 1 day history of chest pain. The patient states she was having right sided chest pain yesterday evening when laying down that was mild in nature and felt like she had strained a muscle but was able to sleep. Today the patient woke up with similar discomfort that continue to progress to a 7/10, sharp pain over the right side of the chest, worse with deep breaths and laying on the right side, and associated with shortness of breath. The patient appreciates having recently driven to and from [place] to visit a friend in the hospital. The patient also has a previous history of clots. This summer the patient states she had a superficial clot in her right leg treated with Aspirin and compresses, and a history of a clot in her left arm several years ago. The patients mother of a large pulmonary embolism. The patients father has a history of lupus. The patient has not been worked up for a clotting disorder in the past and has never been on [employer] blood thinners. Discharge summary on 16Jul2017 71 yo female admitted on 15Jul2017 for chest pain and SOB. PMH: Osteopenia (related to phenobarbital for seizures) on estrogen replacement , seizure disorder. Bilateral pulmonary embolisms: Prior history of clots in right leg and left arm. Here CTA notes bilateral PE. BLE lower extremity u/s notes non- obstructing right popliteal DVT. Mother of PE. From cardiac standpoint, EKG have been non-ischemic thus far and TnI was negative. Symptomatically greatly improved since admit. Unclear if this was provoked vs unprovoked. Started on heparin infusion initially, converted to eliquis before discharge. On home ASA 81. Discussed with patient the following: - Stop estradiol and norethindrone. F/u with gynecology (Dr. Park) for potential alternatives, if any. - Multiple labs pending, results via PCM (lupus, protein C/S, Factor V leiden panel, B-2 GPI panel, phosphatidylserine panel, anti-cardiolipin panel). Seizure disorder: Hx of same, no reports of recent seizures. No acute changes here. Right foot erythema: Noted on exam. Perhaps minimally-tender but not warm or edematous. Full ankle and foot ROM, no pain with ambulation. Does not look presently infected. Recommended to patient to have PCM f/u if ongoing redness. Incidental findings on imaging: Per CTA, noted cardiomegaly, suspect cholelithiasis, and there is a tiny nonobstructing left renal calculus. PCM f/ u for the above. Resident Physician Supervision Note: I interviewed and examined the patient. Discussed with Dr. Greer and agree with findings and plan as documented in the note. Any exceptions or clarifications are listed here: None Patient presented with symptomatic pulmonary embolism while on oral hormonal therapy for osteoporosis she has a significant family history of having both her mother and father having pulmonary embolisms. The patient was presented with the choice to go on Eliquis with the co-pay she is excepted this choice will discharge her on Eliquis today with pending hypercoagulable workup and recommends close outpatient follow-up with her primary care provider Temperature 36 6 pulse 54 respiration 16 BP 102/65 her cardiac exam is regular she is no not tachycardic her lungs are clear with good air movement she has no significant extremity edema Patient be discharged Eliquis loading dose for for 7 days 10 twice daily then 5 twice daily thereafter Documented By: Daniel Yañez Total Time Spent: Greater than 30 minutes This includes examination of the patient, discharge planning, medication reconciliation, and communication with other providers. Discharge Instructions Please refer to the electronic Patient Visit Report (Discharge Instructions) for additional information. Additional Copies To Gina Hyde M.D.; Gutierrez Jerome M.D.; Alda Sanchez M.D. Resident Tracking Resident Involvement: Resident Care Provided Care Provided: Adult Hospital Medicine (inpatient)
[2017-07-16 14:47] VITALS: BP 97/61; PULSE 60; TEMP 36.8; O2SAT 96
--- NOTE | 2017-07-16 17:10 | ECHOCARDIOGRAM REPORT ---
*NOTICE TO RECEIVING [employer] This information is strictly Confidential and protected under [place] law. [place] law prohibits you from making any further disclosure of this information unless further disclosure is expressly permitted by the written consent of the person to whom it pertains or is authorized by law. A general authorization for the release of medical or other information is not sufficient for this purpose. Hospital accepts no responsibility if the information is made available to any other person, INCLUDING THE PATIENT. Interpretation Summary * Name: HADLEY CHIN Study Date: 07/16/2017 07:33 AM BP: 102/65 mmHg * Patient Location: C.2T\S\S239\S\2 HR: 56 * : 1945 (M/d/yyy) Gender: Female Height: 68 in * Age: 71 yrs Ethnicity: [place] Weight: 163 lb * Ordering Physician: Gio Park * Referring Physician: Self, Referred * Performed By: Radha Melgar RDCS * * Reason For Study: BILATERAL PE'S * BSA: 1.9 m2 * -- Conclusions -- * 1. Normal LV size. Borderline concentric LVH. * 2. Normal LV systolic function. LVEF 60-65%. No regional wall motion abnormalities. * 3. Normal RV size and function. * 4. No significant valvular pathology. * 5. Normal estimated PA and RA pressures. * 6. No prior studies for comparison. Procedure Details * A complete two-dimensional transthoracic echocardiogram was performed (2D, M-mode, Doppler and color flow Doppler). Left Ventricle * The left ventricle is grossly normal size. * There is borderline concentric left ventricular hypertrophy. * Ejection Fraction = 60-65%. * No regional wall motion abnormalities noted. Right Ventricle * The right ventricle is grossly normal size. * The right ventricular systolic function is normal as assessed by tricuspid annular plane systolic excursion (TAPSE) (normal >1.5 cm). Atria * The left atrial size is normal. * The right atrium is borderline dilated. * No ASD detected; PFO is not assessed. Mitral Valve * The mitral valve leaflets appear thickened, but open well. * There is no mitral valve stenosis. * Significant mitral regurgitation is absent. Tricuspid Valve * There is trace tricuspid regurgitation. Aortic Valve * The aortic valve opens well. * The aortic valve is trileaflet. * No hemodynamically significant valvular aortic stenosis. * There is no significant aortic regurgitation. Pulmonic Valve * The pulmonary valve is inadequately visualized, but the Doppler data is adequate for interpretation. * There is no pulmonic valvular stenosis. Great Vessels * The aortic root and proximal ascending aorta are normal sized. * Normal inferior vena cava size and collapsability with sniff indicates a normal right atrial pressure of 3 mmHg MMode 2D Measurements and Calculations IVSd 1.0 cm IVSs 1.5 cm LVIDd 4.0 cm LVIDs 2.8 cm LVPWd 1.2 cm LVPWs 1.6 cm IVS/LVPW 0.90 FS 29.9 % EDV(Teich) 68.6 ml ESV(Teich) 29.0 ml EF(Teich) 57.7 % EDV(cubed) 62.4 ml ESV(cubed) 21.5 ml EF(cubed) 65.6 % % IVS thick 41.0 % % LVPW thick 34.6 % LV mass(C)d 143.5 grams LV mass(C)dI 76.6 grams/m\S\2 LV mass(C)s 145.4 grams LV mass(C)sI 77.6 grams/m\S\2 SV(Teich) 39.6 ml SI(Teich) 21.1 ml/m\S\2 SV(cubed) 40.9 ml SI(cubed) 21.8 ml/m\S\2 Ao root diam 2.9 cm Ao root area 6.6 cm\S\2 LA dimension 3.1 cm LA/Ao 1.1 LVAd ap4 24.4 cm\S\2 LVLd ap4 7.2 cm EDV(MOD-sp4) 69.7 ml EDV(sp4-el) 69.7 ml LVAs ap4 14.0 cm\S\2 LVLs ap4 6.1 cm ESV(MOD-sp4) 27.0 ml ESV(sp4-el) 27.1 ml EF(MOD-sp4) 61.3 % EF(sp4-el) 61.1 % LVAd ap2 24.6 cm\S\2 LVLd ap2 7.5 cm EDV(MOD-sp2) 68.5 ml EDV(sp2-el) 68.1 ml LVAs ap2 13.5 cm\S\2 LVLs ap2 5.9 cm ESV(MOD-sp2) 27.5 ml ESV(sp2-el) 26.4 ml EF(MOD-sp2) 59.8 % EF(sp2-el) 61.3 % LVLd %diff 3.7 % EDV(MOD-bp) 70.9 ml LVLs %diff -4.36 % ESV(MOD-bp) 27.2 ml EF(MOD-bp) 61.6 % SV(MOD-sp4) 42.7 ml SI(MOD-sp4) 22.8 ml/m\S\2 SV(MOD-sp2) 40.9 ml SI(MOD-sp2) 21.9 ml/m\S\2 SV(MOD-bp) 43.7 ml SI(MOD-bp) 23.3 ml/m\S\2 SV(sp4-el) 42.6 ml SI(sp4-el) 22.7 ml/m\S\2 SV(sp2-el) 41.7 ml SI(sp2-el) 22.3 ml/m\S\2 Doppler Measurements and Calculations MV E max [place] 64.4 cm/sec MV A max [place] 52.4 cm/sec MV E/A 1.2 MV dec time 0.39 sec Ao V2 max 147.3 cm/sec Ao max PG 8.7 mmHg Ao max PG (full) 3.4 mmHg LV V1 max PG 5.3 mmHg LV V1 max 114.7 cm/sec TR max [place] 160.6 cm/sec
== END 2017-07-16 15:06 | disposition home or self-care (01) | DRG 299 ==
LOC: C.EDB 17:50 → C.2T 22:50 → ENRESERV 23:03
PROVIDERS: ADMIT Student in an Organized Health Care Education/Training Program; ATTEND Hospitalist
DX: I82.431 Acute embolism and thrombosis of right popliteal vein (principal); I26.99 Other pulmonary embolism without acute cor pulmonale; M85.80 Other specified disorders of bone density and structure, unspecified site; T42.3X Poisoning by, adverse effect of and underdosing of barbiturates; G40.909 Epilepsy, unspecified, not intractable, without status epilepticus; Z83.2 Family history of diseases of the blood and blood-forming organs and certain disorders involving the immune mechanism; Z82.69 Family history of other diseases of the musculoskeletal system and connective tissue; Z79.890 Hormone replacement therapy; Z79.82 Long term (current) use of aspirin; Z79.899 Other long term (current) drug therapy; Z91.048 Other nonmedicinal substance allergy status

== ENCOUNTER → 2017-09-21 | Outpatient (CLI) | payer OTHER ==
[~2017-09-21] MED LIST changes: +APIX1TAB3 PO; -CHOL100010 PO; +CHOLTAB9 PO; -[UNRECOGNIZED DRUG - CODE] PO
== END | disposition home or self-care (01) ==
LOC: C.LAB1850 11:44
PROVIDERS: ATTEND Internal Medicine Endocrinology, Diabetes & Metabolism
DX: E55.9 Vitamin D deficiency, unspecified (principal); E05.00 Thyrotoxicosis with diffuse goiter without thyrotoxic crisis or storm